=== PATIENT | male | born 1945 | race Caucasian/White ===

== ENCOUNTER → 2016-09-11 | Outpatient (CLI) | payer MEDICARE, MEDICAID ==
[~2016-09-11] MED LIST: ALLEGRA 180MG180 MG PO; ASPIRIN 32325 MG/TAB PO; BUDEPRION SR150 M1 PO; BUPROPRION; CLONAZEPAM PO; DESYREL 100MG100 MG PO; EFFEXOR 75M75 MG/TAB PO; EFFEXOR XR75 MG/CAP PO; EFFEXOR75 MG PO; FLOMAX 0.40.4 MG/CAP PO; FUROSEMIDE; FUROSEMIDE40 MG PO; GABAPENTIN300 MG PO; GABAPENTIN600 MG PO; HYDROCODONE BIT1 TA3 PO; KLONOPIN 0.5MG0.5 MG PO; KLONOPIN0.5 MG PO; LASIX 40MG TABL40 MG PO; LORTAB 10/500 51 TAB PO; MELOXICAM; MELOXICAM15 MG PO; MOBIC15 MG PO; MUCINEX 60600 MG/TA1 PO; NEURONTIN600 MG/TAB PO; OXECTA7.5 MG PO; SIMVASTATIN40 MG PO; TRAZADONE HYDR100 MG PO; UNABLE; VITAMIN D1000 IU PO; WELLBUTRIN SR150 M1 PO; ZOCOR 40MG40 MG PO
== END ==
LOC: ZCOL.LAB 16:35
DX: Z01.812 Encounter for preprocedural laboratory examination (principal); Z86.14 Personal history of Methicillin resistant Staphylococcus aureus infection

== ENCOUNTER → 2017-01-13 | Outpatient (CLI) | payer MEDICARE, MEDICAID | LOC: ZCOL.LAB 15:49 | DX: Z01.812 Encounter for preprocedural laboratory examination (principal) ==

== ENCOUNTER 2017-06-01 10:57 | Day surgery (SDC) | payer MEDICARE ==
[2017-06-01] VITALS (7 sets, daily range): BP systolic 100–118; BP diastolic 59–68; PULSE 64–71; TEMP 97.9–98
[~2017-06-01] VITALS: Ht 200.7 cm; Wt 135.5 kg
[2017-06-01] MEDS ORDERED: NORCO 325 MG-101 TAB PO (11:54)
[2017-06-02 00:34] VITALS: BP 119/60; PULSE 70; TEMP 98.3
[2017-06-02 04:30] VITALS: BP 116/64; PULSE 66; TEMP 97.9
[2017-06-02 09:22] VITALS: BP 126/65; PULSE 92; TEMP 98.6
[2017-06-02] MEDS ORDERED: PREVACID 30MG30 M1 PO (11:32)
[2017-06-02] MEDS ORDERED: ZESTRIL 20MG TA20 MG PO (11:32)
[2017-06-02] MEDS ORDERED: AMBIEN 10MG10 MG PO (11:33)
[2017-06-02] MEDS ORDERED: PROSCAR 5MG5 MG PO (11:33)
[2017-06-02 13:38] VITALS: BP 134/73; PULSE 94; TEMP 98.3
== END 2017-06-02 16:26 | disposition home health service (06) ==
LOC: SDCO 10:57 → SURG 16:20 → SDCO 06-02 16:26
DX: T81.89XA Other complications of procedures, not elsewhere classified, initial encounter (principal); Z96.698 Presence of other orthopedic joint implants; Z79.82 Long term (current) use of aspirin; G47.33 Obstructive sleep apnea (adult) (pediatric); M19.90 Unspecified osteoarthritis, unspecified site; F41.9 Anxiety disorder, unspecified; F32.9 Major depressive disorder, single episode, unspecified; G89.18 Other acute postprocedural pain
CPT/HCPCS: OP; J0690; J2250; J2704; J2795; J3010; J7030

== ENCOUNTER 2018-04-19 13:10 | Inpatient (IN) | payer MEDICARE ==
[~2018-04-19] VITALS: Ht 195.6 cm; Wt 129.6 kg
[~2018-04-19 13:10] MED LIST changes: +AMBIEN 10MG10 MG PO; +NORCO 325 MG-101 TAB PO; +NORCO 325 MG-7.1 TAB PO; +NS INT FLUSH 1010 ML IV; +PREVACID 30MG30 M1 PO; +PROSCAR 5MG5 MG PO; +SENOKOT S 50 MG1 TAB PO; +VANCOCIN HCL1 GM IV; +ZESTRIL 20MG TA20 MG PO
[2018-04-19 13:42] LABS: BASO % 0.4 % (0.0-2.0); EOS # 0.1 (0.0-0.7); EOS % 1.7 % (0-4.0); GRAN # 5.1 (1.4-6.5); GRAN % 68.2 % (42.2-75.2); HEMATOCRIT 38.2 % (42.0-52.0); HEMOGLOBIN 12.4 g/dl (13.5-18.0); LYMPH # 1.2 (1.2-3.4); LYMPH % 16.6 % (20.0-51.0); MEAN CELL VOLUME 99 fl (80.0-100.0); MEAN CORPUSCULAR HEMOGLOBIN 32 pg (27.0-31.0); MEAN CORPUSCULAR HGB CONC 33 g/dl (33.0-37.0); MEAN PLATELET VOLUME 9.9 fl (7.4-10.4); MONO # 0.9 (0.1-0.6); MONO % 12.7 % (1.7-9.3); PLATELET COUNT 180 K/mm3 (130-400); RED BLOOD COUNT 3.88 M/mm3 (4.20-5.60); REDCELL DISTRIBUTION WIDTH-CV 12.3 % (11.5-14.5)
[2018-04-19 13:44] LABS: PROTHROMBIN TIME 11.6 SECONDS (9.7-12.8)
[2018-04-19 14:41] LABS: BILIRUBIN,TOTAL 0.4 mg/dL (0.0-1.0); C-REACTIVE PROTEIN 1.5 mg/dL (0.0-0.9); POTASSIUM 4.8 mmol/L (3.4-5.0); TOTAL PROTEIN 6.8 gm/dL (6.4-8.2)
[2018-04-19 14:44] LABS: CREATININE, serum 6.59 mg/dL (0.66-1.25)
[2018-04-19 16:35] LABS: COLLECTION METHOD CATHETER
[2018-04-19 16:48] LABS: HYALINE CAST >12 /lpf; MUCOUS Present /lpf; PH 5 (5-8); SQUAMOUS EPITHELIAL 0-2 /hpf; URINE APPEARANCE Clear; URINE BACTERIA None Seen /hpf; URINE BILIRUBIN Negative (NEGATIVE); URINE BLOOD 1+ (NEGATIVE); URINE COLOR Yellow; URINE GLUCOSE Negative (NEGATIVE); URINE KETONE Negative (NEGATIVE); URINE LEUKOCYTE ESTERASE Negative (NEGATIVE); URINE NITRATE Negative (NEGATIVE); URINE PROTEIN(semi-quant) Negative (NEGATIVE)
[2018-04-19 18:51] LABS: ARTERIAL BLD GAS TCO2 CT 22.9; ARTERIAL BLOOD GAS BASE EXCESS -4.5 (-2-2); ARTERIAL BLOOD GAS HCO3 21.6 meq/L (22-26); ARTERIAL BLOOD GAS PCO2 43.5 mmHg (35-45); ARTERIAL BLOOD GAS pH 7.31 (7.35-7.45)
[2018-04-19 21:34] VITALS: PULSE 77; TEMP 98.5
[2018-04-19 21:38] VITALS: BP 82/42; PULSE 77; TEMP 98.5
[2018-04-19] MEDS ORDERED: NORCO 325 MG-101 TAB PO (21:56)
[2018-04-19] MEDS ORDERED: ABILIFY20 MG PO (21:57)
[2018-04-19] MEDS ORDERED: BACTRIM DS 8001 TAB PO (21:59)
[2018-04-19] MEDS ORDERED: PREDNISONE 5MG5 MG PO (21:59)
[2018-04-19] MEDS ORDERED: MOBIC15 MG PO (22:01)
[2018-04-19] MEDS ORDERED: PREVACID 30MG30 M1 PO (22:02)
[2018-04-19] MEDS ORDERED: WELLBUTRIN SR150 M1 PO (22:02)
[2018-04-19 22:06] VITALS: BP 99/47
--- NOTE | 2018-04-19 23:00 | NUR ---
PT ADMITTED TO FLOOR. AT BEDSIDE. NO C/O PAIN AT THIS TIME. IV FLUIDS INFUSING WITHOUT ISSUE. PT STATED HE DOES HAVE SOME DIZZINESS AT TIMES. PT IS [place]. B/P REMAINS AROUND 90'S/40'S AT THIS TIME. NO ELEVATION IN TEMPS. BENTON CATH IN PLACE WITH NOTED URNINE OUTPUT.
[2018-04-20] VITALS (7 sets, daily range): BP systolic 90–131; BP diastolic 18–99; PULSE 69–85; TEMP 97.6–98.6
[2018-04-20 00:01] LABS: CREATININE, serum 5.56 mg/dL (0.66-1.25); FRACTIONAL EXCRETION OF NA+ 1.2 %
--- NOTE | 2018-04-20 06:00 | NUR ---
PT HAD UNEVENTFUL NOC. STAYED OVER NOC WITH . NO ISSUES OR CONSERNS VOICED OVER NOC. NO C/O PAIN, NO NOTED N/V/D. APPEARED TO HAVE RESTED WELL
[2018-04-20 07:36] LABS: BASO % 0.3 % (0.0-2.0); EOS # 0.2 (0.0-0.7); EOS % 2.9 % (0-4.0); GRAN # 3.9 (1.4-6.5); GRAN % 65.1 % (42.2-75.2); HEMOGLOBIN 10.9 g/dl (13.5-18.0); LYMPH # 1.1 (1.2-3.4); MEAN CELL VOLUME 101 fl (80.0-100.0); MEAN CORPUSCULAR HEMOGLOBIN 32 pg (27.0-31.0); MEAN CORPUSCULAR HGB CONC 32 g/dl (33.0-37.0); MEAN PLATELET VOLUME 9.7 fl (7.4-10.4); MONO # 0.8 (0.1-0.6); MONO % 13.4 % (1.7-9.3); PLATELET COUNT 136 K/mm3 (130-400); RED BLOOD COUNT 3.38 M/mm3 (4.20-5.60); REDCELL DISTRIBUTION WIDTH-CV 12.2 % (11.5-14.5)
[2018-04-20 07:44] LABS: ALBUMIN 3.3 gm/dL (3.5-5.0); BILIRUBIN,TOTAL 0.1 mg/dL (0.0-1.0); CALCIUM 8.3 mg/dL (8.4-10.2); POTASSIUM 4.7 mmol/L (3.4-5.0); TOTAL PROTEIN 5.8 gm/dL (6.4-8.2)
[2018-04-20 07:51] LABS: CREATININE, serum 4.61 mg/dL (0.66-1.25)
--- NOTE | 2018-04-20 08:15 | NUR ---
Pt AAOx2, at bedside. Clayton catheter near meatus contains large amount of dried blood, groin and scrotum also contain dried blood - no active bleeding observed - clayton/jennifer care provided. 0925: Pt off unit to MRI
--- NOTE | 2018-04-20 17:14 | NUR ---
SW attended clinical rounds to discuss discharge planning. Patient lives at home with his . Patient's PCP is Dr Loki Martino and he obtains prescriptions from [facility] in [place]. Patient uses a cane for ambulation but no other DME is reported and he does no use any home health services at this time. Patient does have a DPOA and patient's reports she may be able to provide a copy. SW reported PT and OT have been consulted. Patient and are open to home health if those services are recommended. SW will review PT/OT notes and follow up with patient and about recommendation.
--- NOTE | 2018-04-21 00:21 | NUR ---
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 CDA
[2018-04-21 04:02] VITALS: BP 126/69; PULSE 90; TEMP 98.3
--- NOTE | 2018-04-21 04:38 | NUR ---
PT resting well in bed; indwelling catheter draining unobstructed to collection contrainer; LR running at 75ml/hr to LFA; PT continue contact ISO for HX of MRSA; No further needs assessed or verbalized at time of rounds; Will continue to monitor. CDA
[2018-04-21 07:09] LABS: BASO % 0.4 % (0.0-2.0); EOS # 0.1 (0.0-0.7); GRAN # 2.9 (1.4-6.5); GRAN % 58.6 % (42.2-75.2); HEMOGLOBIN 10.9 g/dl (13.5-18.0); LYMPH # 1.2 (1.2-3.4); LYMPH % 24.3 % (20.0-51.0); MEAN CELL VOLUME 98 fl (80.0-100.0); MEAN CORPUSCULAR HEMOGLOBIN 32 pg (27.0-31.0); MEAN CORPUSCULAR HGB CONC 32 g/dl (33.0-37.0); MEAN PLATELET VOLUME 9.9 fl (7.4-10.4); MONO # 0.7 (0.1-0.6); MONO % 14.3 % (1.7-9.3); PLATELET COUNT 138 K/mm3 (130-400); RED BLOOD COUNT 3.44 M/mm3 (4.20-5.60); REDCELL DISTRIBUTION WIDTH-CV 11.9 % (11.5-14.5)
--- NOTE | 2018-04-21 07:12 | NUR ---
Report given to LUIS CARLOS Holguin. CDA
[2018-04-21 07:13] VITALS: BP 127/52; PULSE 73; TEMP 98.1
[2018-04-21 07:19] LABS: HEMATOCRIT 33.7 % (42.0-52.0)
[2018-04-21 07:21] LABS: CREATININE, serum 2.21 mg/dL (0.66-1.25); POTASSIUM 4.5 mmol/L (3.4-5.0)
--- NOTE | 2018-04-21 08:00 | NUR ---
PATIENT SITTING ON SIDE OF BED EATING BREAKFAST. HE IS COMPLAINING THAT HIS BENTON CATHETER IS BURNING AND HE HAS A LOT OF PRESSURE LIKE HE NEEDS TO URINATE. PATENCY OF BENTON VERIFIED AND IT IS ACTIVELY DRAINING URINE. HE STATES HE WANTS THE CATHETER OUT BECAUSE HE IS GOING TO GO HOME TODAY.
[2018-04-21 12:10] VITALS: BP 116/64; PULSE 80; TEMP 98.5
--- NOTE | 2018-04-21 15:00 | NUR ---
NURSE WAS CALLED INTO ROOM AND FOUND THAT PATIENT WAS DRESSED IN HIS STREET CLOTHES. HE STATED THAT HE WANTS TO LEAVE BECAUSE HE NEEDS TO TAKE CARE OF HIS . HE IS WORRIED ABOUT HER. SHE HAS NOT LEFT SINCE HE HAS BEEN IN THE HOSPITAL. PATIENT SIGNED THE AMA PAPERWORK AND UNDERSTOOD THAT HE CAN'T JUST RUN HER HOME AND COME BACK. HOSPITALIST WAS NOTIFIED AND FOLLOW UP APPOINTMENTS MADE.
[2018-04-21] MEDS ORDERED: NEURONTIN100 MG/CAP PO (15:29)
[2018-04-21] MEDS ORDERED: TYLENOL 325MG325 MG PO (15:29)
--- NOTE | 2018-04-21 16:20 | NUR ---
PATIENT READY FOR AMA DISCHARGE. IV WAS D/C'ED. CATHETER TIP INTACT. PATIENT HAS BEEN ABLE TO VOID MULTIPLE TIMES WITHOUT DIFFICULTY. HE IS LEAKING URINE. DEPENDS WAS TAKEN IN, HOWEVER PATIENT REFUSED TO PUT IT ON. ALL PAPERWORK WAS REVIEWED AND FOLLOW UP APPOINTMENTS WERE MADE. AMA PAPERWORK SIGNED WELL. PATIENT WAS TAKEN OUT BY WHEELCHAIR. DENIES ANY QUESTIONS AT THIS TIME.
--- NOTE | 2018-04-21 16:41 | NUR ---
Patient was ambulatory and left AMA. Patient will not have home health.
== END 2018-04-21 16:20 | disposition left against medical advice (07) | DRG 683 ==
LOC: COL.ER 13:10 → MEDICAL 19:03 → COL.ER 19:03 → MEDICAL 04-21 03:00
PROVIDERS: Emergency Medicine; Family Medicine; Nurse Practitioner Family; ADMIT Hospitalist
DX: N17.9 Acute kidney failure, unspecified (principal); G93.40 Encephalopathy, unspecified; E87.2 Acidosis; I10 Essential (primary) hypertension; C61 Malignant neoplasm of prostate; E78.5 Hyperlipidemia, unspecified; G62.9 Polyneuropathy, unspecified; F41.8 Other specified anxiety disorders; N40.1 Benign prostatic hyperplasia with lower urinary tract symptoms; R39.12 Poor urinary stream; R33.8 Other retention of urine; N20.0 Calculus of kidney; Z79.01 Long term (current) use of anticoagulants; I95.9 Hypotension, unspecified; R09.02 Hypoxemia; Z79.52 Long term (current) use of systemic steroids; Z91.81 History of falling; D64.9 Anemia, unspecified; Z86.14 Personal history of Methicillin resistant Staphylococcus aureus infection
CPT/HCPCS: 99223-AI; 99239; J1644; J7030; J7120; J7512

== ENCOUNTER 2020-11-20 08:27 | Day surgery (SDC) | payer MEDICARE ==
[2020-11-20] VITALS (9 sets, daily range): BP systolic 115–161; BP diastolic 72–82; PULSE 62–78; TEMP 97.5
[~2020-11-20] VITALS: Ht 195.8 cm; Wt 112.2 kg
[~2020-11-20 08:27] MED LIST changes: +ABILIFY20 MG PO; +BACTRIM DS 8001 TAB PO; +NEURONTIN100 MG/CAP PO; +PREDNISONE 5MG5 MG PO; +TYLENOL 325MG325 MG PO
[2020-11-20 09:29] LABS: HEMOGLOBIN 12.6 g/dl (13.5-18.0); MEAN CELL VOLUME 92 fl (80.0-100.0); MEAN CORPUSCULAR HEMOGLOBIN 30 pg (27.0-31.0); MEAN CORPUSCULAR HGB CONC 33 g/dl (33.0-37.0); MEAN PLATELET VOLUME 9.2 fl (7.4-10.4); PLATELET COUNT 141 K/mm3 (130-400); RED BLOOD COUNT 4.15 M/mm3 (4.20-5.60); REDCELL DISTRIBUTION WIDTH-CV 12.2 % (11.5-14.5)
[2020-11-20] MEDS ORDERED: NEURONTIN100 MG/CAP PO (09:35)
[2020-11-20] MEDS ORDERED: PROTONIX 40MG T40 MG PO (09:36)
[2020-11-20] MEDS ORDERED: ALLEGRA 180MG180 MG PO (09:40)
[2020-11-20 09:41] LABS: INR 1.1 (0.8-3.0); PROTHROMBIN TIME 12.2 SECONDS (9.7-12.8)
[2020-11-20] MEDS ORDERED: CRESTOR 10MG10 MG PO (09:41)
[2020-11-20] MEDS ORDERED: NASAL MOISTURIZ45 ML NS (09:42)
[2020-11-20] MEDS ORDERED: AFRIN 15 ML15 ML NS (09:42)
[2020-11-20 09:43] LABS: PARTIAL THROMBOPLASTIN TIME 28.9 SECONDS (26.0-37.0)
[2020-11-20] MEDS ORDERED: EYE DROP ADVANC15 ML OP (09:43)
[2020-11-20 14:33] LABS: CALCIUM 10.1 mg/dL (8.4-10.2); CREATININE, serum 1.38 mg/dL (0.72-1.25); POTASSIUM 4.5 mmol/L (3.5-4.5)
--- NOTE | 2020-11-20 14:47 | NUR ---
SEE MERGE DOCUMENTATION FOR MEDICATION ADMINISTRAION TIMES AND INTRA/POST PROCEDURE SEDATION ASSESSMENTS.
--- NOTE | 2020-11-20 15:30 | NUR ---
REport from Devendra RN. Transferred from [facility] Work[facility] by bed. ALert and oriented, denies pain and needs at this time. Right tband with 12 cc air CD&I, good pulses and cap refill < 3 secs noted. VSS. Parris surinder
[2020-11-20] MEDS ORDERED: ASPIRIN E.C. 8181 MG PO (15:41)
[2020-11-20] MEDS ORDERED: NORVASC2.5 MG PO (15:41)
--- NOTE | 2020-11-20 17:45 | NUR ---
Right Tband released of 12 cc air and dressing applied. INT discontinued intact. Discharge instructions given.
--- NOTE | 2020-11-20 18:00 | NUR ---
Transferred to private car by mirza
== END 2020-11-20 18:00 | disposition home or self-care (01) ==
LOC: COL.CAR 08:27
PROVIDERS: Internal Medicine Cardiovascular Disease
DX: I25.10 Atherosclerotic heart disease of native coronary artery without angina pectoris (principal); R94.39 Abnormal result of other cardiovascular function study; I10 Essential (primary) hypertension; G47.33 Obstructive sleep apnea (adult) (pediatric); E78.00 Pure hypercholesterolemia, unspecified; R06.00 Dyspnea, unspecified; M19.90 Unspecified osteoarthritis, unspecified site; F32.9 Major depressive disorder, single episode, unspecified; Z99.89 Dependence on other enabling machines and devices; Z83.3 Family history of diabetes mellitus
CPT/HCPCS: C1769; C1894; J1644; J2250; J3010; Q9967